=== PATIENT | male | born 1945 | race Caucasian/White ===

== ENCOUNTER → 2017-08-14 | Outpatient (CLI) | payer MEDICARE, BC ==
[2013-10-19 11:25] VITALS: BP 154/87
[~2017-08-14] MED LIST: CHOLESTEROL MA600 MG PO; GOOD SENSE ASPI81 M1 PO; LANTUS100 U/ML; LISINOPRIL40 MG PO; METFORMIN HCL500 M1 PO; MULTIVITAMIN1 CTB PO; NORVASC 5MG5 MG/TAB PO; OMEGA-31 SGL PO
== END ==
LOC: LAB 12:06
DX: N30.00 Acute cystitis without hematuria (principal)

== ENCOUNTER 2022-04-14 12:58 | Emergency (ER) | payer MEDICARE ==
[~2022-04-14 12:58] MED LIST changes: -METFORMIN HCL500 M1 PO; +METFORMIN HYD1000 M1 PO
[2022-04-14] MEDS ORDERED: ATORVASTATIN CA10 MG PO (13:54)
[2022-04-14] MEDS ORDERED: HYGROTON 2525 MG/TAB PO (13:56)
[2022-04-14 14:16] LABS: BASO # 0.02 K/mm3 (0.02-0.10); EOS # 0.02 K/mm3 (0.04-0.40); EOS % 0.2 % (0.0-4.0); HEMATOCRIT 42.8 % (42.0-52.0); HEMOGLOBIN 13.9 g/dL (13.5-18.0); MEAN CELL VOLUME 93 fl (78-100); MEAN CORPUSCULAR HEMOGLOBIN 30 pg (27-31); MEAN CORPUSCULAR HGB CONC 33 g/dL (33-37); MEAN PLATELET VOLUME 9.9 fl (7.4-10.4); MONO # 0.78 K/mm3 (0.20-0.80); NEU # 10.12 K/mm3 (1.40-6.50); PLATELET COUNT 192 K/mm3 (130-400); RED BLOOD COUNT 4.61 M/mm3 (4.20-5.60); RED CELL DISTRIBUTION WIDTH 13.5 % (11.5-14.5); WHITE BLOOD COUNT 11.9 K/mm3 (4.8-10.8)
[2022-04-14 14:32] LABS: ALBUMIN 4.1 g/dL (3.4-4.8); POTASSIUM 4.7 mmol/L (3.5-5.1); SODIUM 138 mmol/L (136-145)
[2022-04-14 14:34] LABS: CALCIUM 9.5 mg/dL (8.3-10.5)
[2022-04-14 14:35] LABS: GLUCOSE 162 mg/dL (75-110); TOTAL PROTEIN 7.3 g/dL (6.2-8.1)
[2022-04-14 14:36] LABS: CARBON DIOXIDE 24 mmol/L (23-31)
[2022-04-14 14:37] LABS: TOTAL BILIRUBIN 0.5 mg/dL (0.2-1.2)
[2022-04-14 14:40] LABS: AST-SGOT 19 U/L (5-34)
[2022-04-14 14:41] LABS: ALT/SGPT 20 U/L (0-55)
[2022-04-14 15:05] LABS: TROPONIN-I < 0.030 ng/mL (<0.030)
[2022-04-14 15:39] LABS: LIPASE > 1200 U/L (8-78)
[2022-04-14] MEDS ORDERED: PRILOSEC 20MG20 MG PO (16:38)
[2022-04-14] MEDS ORDERED: ONDANSETRON HYDR4 MG PO (16:38)
[2022-04-14 17:24] LABS: PH-URINE 5.5 (5.0 - 8.0); URINE APPEARANCE CLEAR; URINE BILIRUBIN NEGATIVE (NEGATIVE); URINE BLOOD NEGATIVE (NEGATIVE); URINE COLOR LT YELLOW; URINE GLUCOSE NEGATIVE (NEGATIVE); URINE KETONE NEGATIVE (NEGATIVE); URINE LEUKOCYTE ESTERASE NEGATIVE (NEGATIVE); URINE NITRATE NEGATIVE (NEGATIVE); URINE PROTEIN(semi-quant) NEGATIVE (NEGATIVE); URINE UROBILINOGEN NORMAL (NORMAL)
[2022-04-14 17:25] LABS: URINE MUCUS PRESENT (NOT PRESENT); URINE WBC 0-1 /hpf (0-3)
[2022-04-14 17:49] VITALS: BP 160/79
== END 2022-04-14 17:49 | disposition home or self-care (01) ==
LOC: ED 12:58
PROVIDERS: Physician Assistant
DX: R14.0 Abdominal distension (gaseous) (principal); R10.13 Epigastric pain; D72.829 Elevated white blood cell count, unspecified; R74.8 Abnormal levels of other serum enzymes; R79.89 Other specified abnormal findings of blood chemistry
CPT/HCPCS: J7040; Q9967

== ENCOUNTER 2024-01-13 09:59 | Outpatient (RCR) | payer MEDICARE ==
[~2024-01-13 09:59] MED LIST changes: +ATORVASTATIN CA10 MG PO; +HYGROTON 2525 MG/TAB PO; +ONDANSETRON HYDR4 MG PO; +PRILOSEC 20MG20 MG PO
== END 2024-02-08 | disposition home or self-care (01) ==
LOC: CARDREHAB
DX: Z48.812 Encounter for surgical aftercare following surgery on the circulatory system (principal); Z95.5 Presence of coronary angioplasty implant and graft; I50.9 Heart failure, unspecified

== ENCOUNTER 2024-02-10 09:51 | Outpatient (RCR) | payer MEDICARE | END 2024-03-10 | disposition home or self-care (01) | LOC: CARDREHAB | DX: Z48.812 Encounter for surgical aftercare following surgery on the circulatory system (principal); Z95.5 Presence of coronary angioplasty implant and graft; I50.9 Heart failure, unspecified ==